=== PATIENT | male | born 1990 | race Caucasian/White ===

== ENCOUNTER 2016-09-28 10:53 | Day surgery (SDC) | payer BC ==
--- NOTE | 2016-09-22 16:29 | History and Physical Report ---
HISTORY OF PRESENT ILLNESS: I saw Mr. Mckeon in the office on 09/21/16 in regards to his abdominal pain. Mr. Mckeon is a 26-year-old male who states he has been having some ongoing right subcostal postprandial pain. He has extreme postprandial bloating and nausea. Denies any problems with acid reflux. Ultrasound did not reveal any evidence of cholelithiasis or cholecystitis. Follow-up HIDA scan showed a normal uptake and excretion, however, he had an impaired ejection fraction of 16% with extreme reproduced discomfort. PAST MEDICAL HISTORY: Significant for polycystic kidney disease, hypertension. PAST SURGICAL HISTORY: Left inguinal hernia. He had a left varicocelectomy. MEDICATIONS: He takes Losartan. ALLERGIES: HE HAS ALLERGIES TO AMOXICILLIN. PHYSICAL EXAMINATION: GENERAL: Height is 6'6". Weight is 175. VITAL SIGNS: He is afebrile. Vital signs are stable. HEART: Regular. LUNGS: Clear. ABDOMEN: Soft. There is some mild right subcostal tenderness with deep palpation. At this time, I did review his imaging studies. IMPRESSION: SYMPTOMATIC BILIARY DYSKINESIA: At this point, we did discuss cholecystectomy versus medical management; he desires surgical intervention. The risks include but not limited to; bleeding, infection, ductal injury, possible conversion to open, postoperative bile leak, nonresolution of his symptoms, and he understands this fully. This will be scheduled shortly. Luis Fernando Steele D.O. Date Time JOB NUMBER: [id number] [facility]
[~2016-09-28 10:53] MED LIST: ACETAMINOPHEN 1000MG/100 ML PREMIX IV ONE; FAMOTIDINE 20MG TABLET PO ONE; MECLIZINE 25 MG TABLET PO ONE; METOCLOPRAMIDE 10 MG TABLET PO ONE
[2016-09-28] MEDS ORDERED: BUPIVACAINE 0.25% W/EPI MPF 30ML VIAL IVP ONE (14:00)
[2016-09-28] MEDS ORDERED: SUCCINYLCHOLINE 20 MG/ML 10ML IVP ONE (14:00)
[2016-09-28] MEDS ORDERED: HYDROCODONE/APAP 5/325MG TABLET PO ONE (14:00)
[2016-09-28] MEDS ORDERED: MIDAZOLAM HCL 2MG/2ML VIAL IV ONE (14:00)
[2016-09-28] MEDS ORDERED: HYDROMORPHONE HCL 2 MG/ML VIAL IV ONE ×2 (14:00)
[2016-09-28] MEDS ORDERED: LIDOCAINE 2% MDV (20MG/ML) 20ML VIAL IV ONE (14:00)
[2016-09-28] MEDS ORDERED: ROCURONIUM BROMIDE 50MG/5ML VIAL IV ONE (14:00)
[2016-09-28] MEDS ORDERED: FENTANYL PF 100MCG/2ML VIAL IV ONE (14:00)
--- NOTE | 2016-09-29 17:03 | Operative Note ---
DATE OF SURGERY: 09/28/16 PREOPERATIVE DIAGNOSIS: SYMPTOMATIC BILIARY DYSKINESIA. POSTOPERATIVE DIAGNOSIS: SYMPTOMATIC BILIARY DYSKINESIA. OPERATION: LAPAROSCOPIC CHOLECYSTECTOMY. SURGEON: TENA STEELE D.O. INDICATIONS: The patient is a 26-year-old male who is having ongoing right subcostal and postprandial pain. Gallbladder workup including ultrasound and HIDA scan did reveal an impaired ejection fraction and pain reproduced with Kinevac injection. We did discuss cholecystectomy versus medical management and he desired surgical intervention. The risks include but not limited to; bleeding , infection, ductal injury, possible conversion to open, postoperative bile leak , nonresolution of his symptoms, and he understood this fully. PROCEDURE: Therefore, after consent was signed and questions were answered, he was taken to the Operating Room and placed in the supine position. General anesthesia was administered per Department of Anesthesia. The patient's abdomen was prepped and draped in the usual sterile fashion. Infraumbilical region was then anesthetized with a total of 2 mL of 0.25% Sensorcaine with Epinephrine. A 1.5 cm infraumbilical incision was made. This was carried down to the anterior rectus fascia. This was incised. Ranjith clamps were placed and the fascial edges were brought up into the wound. Stay sutures of 0 Vicryl were placed. The posterior rectus sheath was identified and incised. The peritoneal cavity was entered bluntly. At this time, a 10 mm blunt Saundra port was placed and adequate pneumoperitoneum was established. Under direct visualization, additional 5 mm epigastric and two 5 mm right subcostal ports were placed. The gallbladder was identified. It was covered with dense omental adhesions. These were taken down with the Giovanni harmonic. Further cephalad and lateral direction __ the gallbladder. The hepatocystic triangle was thoroughly dissected out. No aberrant anatomy. No posterior ductal structures. An infundibular technique was used to obtain an extra critical view of safety. There were only two structures of the cystic duct and cystic artery. Each one was circumferentially dissected out in a 360-degree fashion. There was no aberrant anatomy. No posterior ductal structures. Each one was doubly clipped and cut in the standard fashion. The gallbladder was then taken off the liver bed with the Giovanni harmonic. At this time, this was extracted infraumbilically. The right upper quadrant was then rechecked and noted to be hemostatic. No bleeding, no bile leak, and no bowel injury noted. The patient was leveled out and pneumoperitoneum was released. All ports were removed. The fascia was closed with 0 Vicryl in a [id number] fashion. Skin ports were closed with 4 -0 Vicryl. He was taken to the Recovery Room in satisfactory condition. FINDINGS AT THE TIME OF SURGERY: CHRONIC CHOLECYSTITIS. Tena Steele D.O. Time & Date cc: Wade Urbina D.O. JOB NUMBER: [id number] [facility]
== END 2016-09-28 14:47 | disposition home or self-care (01) ==
LOC: SUR 10:53
PROVIDERS: ATTEND Surgery
DX: K81.1 Chronic cholecystitis (principal); I10 Essential (primary) hypertension
CPT/HCPCS: 47562; 00790; J3010; J1170; J0330